=== PATIENT | female | born 1950 | race Caucasian/White ===

== ENCOUNTER 2024-06-15 00:22 | Day surgery (SDC) | payer OTHER, SELFPAY ==
[2024-06-14 10:49] VITALS: BMI 31.7
[2024-06-15 08:57] VITALS: BP 175/76; PULSE 86; RESP 14; TEMP 36.8; O2SAT 97; BMI 31.2
[2024-06-15 09:14] LABS: Basophils Absolute Auto 0.1 K/mm3 (0.0-0.1); Basophils Percent Auto 0.5 % (0.2-1.2); Eosinophils Absolute Auto 0.1 K/mm3 (0-0.3); Eosinophils Percent Auto 0.8 % (0-4.4); Hematocrit 36.8 % (37.0-47.0); Hemoglobin 12.5 g/dL (12.0-15.0); Immature Granulocyte Absolute 0.05 K/mm3 (0.00-0.031); Immature Granulocyte Percent A 0.4 % (0-0.5); Lymphocytes Absolute Auto 2.43 K/mm3 (0.9-3.2); Lymphocytes Percent Auto 18.6 % (18.3-44.2); Mean Corpuscular Hemoglobin 31.6 pg (26-34); Mean Corpuscular Volume 93.2 fl (80-100); Monocytes Absolute Auto 0.9 K/mm3 (0.1-0.6); Monocytes Percent Auto 6.8 % (2.6-8.5); Neutrophils Absolute Auto 9.5 K/mm3 (1.3-6.7); Neutrophils Percent Auto 72.9 % (45.5-73.1); Platelet Count Result 301 k/mm3 (150-375); Red Blood Count 3.95 M/mm3 (4.2-5.4); White Blood Count 13.1 K/mm3 (4.5-10.0)
[2024-06-15 09:24] LABS: Anion Gap 8 mmol/L (4-12); Blood Urea Nitrogen 33 mg/dL (7-17); Calcium 9.3 mg/dL (8.4-10.2); Carbon Dioxide 28 mmol/L (22-30); Chloride 102 mmol/L (98-107); Estimated CRCL calculation 43 ml/min; Estimated Glomerular Filt Rate > 60; Glucose 95 mg/dL (65-110); Potassium 3.5 mmol/L (3.4-5.0); Sodium 138 mmol/L (137-145)
--- NOTE | 2024-06-15 11:36 | WPDMODSED ---
Moderate Sedation Note-Pt Data Patient Data Diagnosis: sick sinus syndrome, permanent pacemaker at [facility] Present Complaint: no complaints Procedure to be performed/Plan: permanent pacemaker generator change Allergies Allergy/AdvReac Type Severity Reaction Status Date / Time phenytoin [From Dilantin] Allergy Severe Rash Verified 06/15/24 08:52 Sulfa (Sulfonamide Allergy Intermediate Rash Verified 06/15/24 08:52 Antibiotics) Chzyjey-[id number]-YmT Reductase AdvReac Mild Muscle Pain Verified 06/15/24 08:52 Inhibitor Home Medications Medication Instructions Recorded Confirmed Type cyclobenzaprine 5 mg tablet 5 mg PO TID PRN Muscle Pain 06/14/24 06/14/24 History diclofenac sodium 75 mg 75 mg PO DAILY 06/14/24 06/14/24 History tablet,delayed release evolocumab 140 mg/mL subcutaneous mg subcut 06/14/24 History pen injector (Radha Elliott) hydroxychloroquine 200 mg tablet 200 mg PO DAILY 06/14/24 06/14/24 History levothyroxine 75 mcg tablet 75 mcg PO DAILY 06/14/24 06/14/24 History lisinopril 20 1 tablet PO DAILY 06/14/24 06/14/24 History mg-hydrochlorothiazide 25 mg tablet metoprolol succinate 100 mg 100 mg PO DAILY 06/14/24 06/14/24 History tablet,extended release 24 hr metoprolol succinate 25 mg 25 mg PO DAILY 06/14/24 06/14/24 History tablet,extended release 24 hr omega-3 acid ethyl esters 1 gram PO 06/14/24 History capsule omeprazole 40 mg capsule,delayed 40 mg PO DAILY 06/14/24 06/14/24 History release prednisone 10 mg tablet 10 mg PO DAILY PRN flare 06/14/24 06/14/24 History tramadol 50 mg tablet 50 mg PO QID PRN Pain, Moderate 06/14/24 06/14/24 History zolpidem 5 mg tablet 5 mg PO HS PRN Insomnia 06/14/24 06/14/24 History Sudafed 30 mg PO DAILY 06/15/24 06/15/24 History Sedation/Anesthesia: No previous sedation/anesthesia problems (including family history). PMFSH Social History Social History Smoking packs per day: 0.5 Smoking cigarettes per day: 10.0 Smoking status: Former smoker Tobacco type: cigarettes Second hand tobacco smoke exposure: Yes Smoking end date: 08/17/77 Substance use type: does not use Living arrangements: alone Spiritual care concerns: No Mod Sed Physical Exam Physical Exam Pre Procedural Exam: Normal: Appearance, Neck, Throat, Airway, Lungs, Heart Size, Heart Rate, Heart Rhythm, Neuro Exam and Extremities Hours since solid foods: 12 Hours since liquid intake: 12 Mallampati Classification: class II Internal Medicine - PN: Obj Da Vital Signs Vital Signs: Vital Signs - 24 hr 06/15/24 08:57 Temperature 36.8 C Pulse Rate 86 Respiratory Rate 14 Blood Pressure 175/76 H Pulse Oximetry 97 Oxygen Delivery Room Air Labs 06/15/24 08:51 06/15/24 08:51 Labs: Laboratory Results - last 24 hr 06/15/24 08:51 WBC 13.1 H RBC 3.95 L Hgb 12.5 Hct 36.8 L MCV 93.2 MCH 31.6 MCHC 34.0 RDW 13.0 Plt Count 301 MPV 10.0 Immature Gran % (Auto) 0.4 Neut % (Auto) 72.9 Lymph % (Auto) 18.6 [place] % (Auto) 6.8 Eos % (Auto) 0.8 Baso % (Auto) 0.5 Lymph # (Auto) 2.43 [place] # (Auto) 0.9 H Eos # (Auto) 0.1 Baso # (Auto) 0.1 Abs Immat Gran (auto) 0.05 H Absolute Neuts (auto) 9.5 H Absolute Nucleated RBC 0.000 Nucleated RBC % 0.0 Sodium 138 Potassium 3.5 Chloride 102 Carbon Dioxide 28 Anion Gap 8 BUN 33 H Creatinine 0.90 Estim Creat Clear Calc 43 Estimated GFR > 60 Glucose 95 Calcium 9.3 ASA Classification/Sedation ASA Classification/Sedation ASA Class: II Emergent: No Risks: Risks, benefits and alternatives explained and patient/family accepted plan for sedation. Patient re-evaluated immediately prior to sedation.
--- NOTE | 2024-06-15 13:22 | WPDCARDPROC ---
Cardiac Cath Procedure Note Date of procedure:: 06/15/24 Performing physician:: Allen Perla MD Indication:: chronically implanted pacemaker at [facility] Brief clinical history:: this is a 74-year-old lady with a history of chronic pacemaker implantation treatment of sick sinus syndrome. Her device has found routine follow-up to be at [facility] and she is admitted today for a generator change. This will be the 3rd chronically implanted pocket. her original device was implanted in December of 2000. Generator change October. Procedure Procedure performed:: Explant depleted pacemaker pulse generator implant new dual-chamber pacemaker pulse generator Sedation/Medication given:: fentanyl 50 mg Versed 2 mg Access site:: chronically implanted pacemaker pocket in the left anterior chest wall Estimated blood loss:: minimal Procedure note:: patient was brought to the cardiac catheterization lab in the postabsorptive state where the left anterior chest wall was prepped and draped in the normal sterile fashion. Anesthesia was given with 20 cc of lidocaine infiltrated above the chronically implanted pacemaker pocket. Using the PlasmaBlade an incision was made the pocket and using electrocautery cutaneous hemostasis was provided. The PlasmaBlade was used to dissect the subcutaneous tissue and encounter the fibrous capsule. This was then opened using the plasma blade and the Metzenbaum scissors. The pacemaker generator in the attached leads were encountered and found to be unremarkable in appearance. The torque wrench was used to disconnect the leads from the chronically implanted depleted pulse generator. Some additional dissection had to be done then in the inferior capsule to free up the leads to allow them to be inserted into the new generator. Following this the leads were inserted into the new pulse generator. The pocket was then irrigated with antibiotic infused saline. The pacemaker in the chronically implanted leads were placed back into the pocket this was then closed in layers 3-0 Vicryl in an interrupted fashion for the subcutaneous tissue and 4-0 Vicryl in a running subcuticular fashion for the skin. The wound was dressed with an Aquacel dressing the patient was taken to the holding area stable condition the procedure was uncomplicated and well tolerated. Findings:: The explanted pacemaker is a Medtronic dual-chamber pacemaker model ADDR01 serial number [id number]. originally implanted November 06, 2010. The new pacemaker is a Medtronic dual-chamber device model W1DR01 serial number [id number]. device is programed in the AI/DDD lower rate limit 50 upper rate limit 130 av delay 180/150 milliseconds the chronically implanted atrial lead is a Medtronic bipolar 5076-45 serial [id number]. the P-waves are sensed at 2.3 mV threshold 1 volts at 0.4 milliseconds impedance 380 Ohms. The chronically implanted ventricular lead is a Medtronic bipolar lead model 5076-52 serial number [id number]. the R-waves are sensed at 8.9 mV threshold is 2.0 volts at 1.0 milliseconds threshold 570 Ohms. Conclusion:: 1. Successful uncomplicated explantation of depleted dual-chamber pulse generator 2. successful uncomplicated implantation of new dual-chamber Medtronic pulse generator for ongoing treatment of sick sinus says this 74-year-old lady 3. higher RV threshold is noted which is known to be chronic and unchanged from chronic measurements in the office. as the patient does very little ventricular pacing it was not felt to be necessary to implant a new ventricular lead at this time Allen Perla MD [facility]
[2024-06-15 13:40] VITALS: BP 131/95; PULSE 81; RESP 11; O2SAT 97
[2024-06-15 13:55] VITALS: BP 138/77; PULSE 78; RESP 19; O2SAT 99
[2024-06-15 14:10] VITALS: BP 118/70; PULSE 88; RESP 18; O2SAT 97
[2024-06-15 14:25] VITALS: BP 170/71; PULSE 80; RESP 14; O2SAT 98
== END 2024-06-15 14:54 | disposition home or self-care (01) ==
PROVIDERS: PCP Internal Medicine; Visit Provider Specialist
PROC: 0JPT0PZ Removal of Cardiac Rhythm Related Device from Trunk Subcutaneous Tissue and Fascia, Open Approach (ICD-10-PCS; CPT 33228; principal; 2024-06-15 10:00)
DX: I49.5 Sick sinus syndrome (principal); Z79.52 Long term (current) use of systemic steroids; Z79.891 Long term (current) use of opiate analgesic; Z79.85 Long-term (current) use of injectable non-insulin antidiabetic drugs; Z87.891 Personal history of nicotine dependence
CPT/HCPCS: 33228; 36415; 80048; 85025; C1785; J0690; J2003; J2250; J3010; J7040